=== PATIENT | female | born 1995 ===

== ENCOUNTER 2022-02-04 11:00 | Observation (INO) | payer MEDICAID, OTHER ==
[2022-02-04] MEDS ORDERED: PREN-96 PO (13:24)
== END 2022-02-04 13:33 | disposition home or self-care (01) ==
LOC: LDRP 11:00
PROVIDERS: ADMIT Obstetrics & Gynecology; ATTEND Obstetrics & Gynecology
DX: O26.893 Other specified pregnancy related conditions, third trimester (principal); N89.8 Other specified noninflammatory disorders of vagina; O48.0 Post-term pregnancy; Z3A.40 40 weeks gestation of pregnancy
CPT/HCPCS: 59025; 76818; 81002; 94760; G0378